=== PATIENT | male | born 1995 | race Hispanic/Latino ===

== ENCOUNTER 2018-03-03 00:01 | Emergency (ER) | payer OTHER ==
--- NOTE | 2018-03-03 07:55 | RAD ---
RIGHT SHOULDER RADIOGRAPHS 3 VIEWS: DATE: 03/03/2018. PROVIDED CLINICAL HISTORY: Right shoulder pain status post injury. FINDINGS: The glenohumeral relationship appears normal. Hill-Sachs impaction defect is suggested involving the humeral head. No additional osseous abnormality is apparent. The visualized right lung field appea rs clear. IMPRESSION: Hill-Sachs impaction defect is suspected, the chronicity of which is not certain. If there is concer n for associated internal derangement, consider MRI. POS: OFF
== END 2018-03-03 01:40 | disposition home or self-care (01) ==
LOC: ERS 00:01
DX: M25.511 Pain in right shoulder (principal); W19.XXXA Unspecified fall, initial encounter